=== PATIENT | female | born 1955 | race Caucasian/White ===

== ENCOUNTER 2018-03-24 07:30 | Emergency (ER) | payer MEDICARE, OTHER ==
[~2018-03-24] VITALS: Ht 165.1 cm; Wt 90.7 kg
[2018-03-24 07:43] VITALS: BP 123/62
[2018-03-24] MEDS ORDERED: traMADol HCL 50 MG TAB PO ONE (09:15)
== END 2018-03-24 09:25 | disposition home or self-care (01) ==
LOC: ER 07:30
DX: S82.892A Other fracture of left lower leg, initial encounter for closed fracture (principal); S83.522A Sprain of posterior cruciate ligament of left knee, initial encounter; I10 Essential (primary) hypertension; Z90.49 Acquired absence of other specified parts of digestive tract; Z90.710 Acquired absence of both cervix and uterus; W19.XXXA Unspecified fall, initial encounter; Y93.89 Activity, other specified; Y92.89 Other specified places as the place of occurrence of the external cause; Y99.8 Other external cause status
CPT/HCPCS: 29515; 73562; 73610

== ENCOUNTER 2019-11-02 14:51 | Emergency (ER) | payer MEDICARE ==
[~2019-11-02] VITALS: Ht 165.1 cm; Wt 88.5 kg
[2019-11-02 15:23] VITALS: BP 151/100
[2019-11-02] MEDS ORDERED: traMADol HCL 50 MG TAB PO ONE (16:00)
== END 2019-11-02 16:32 | disposition home or self-care (01) ==
LOC: ER 14:54
DX: S52.502A Unspecified fracture of the lower end of left radius, initial encounter for closed fracture (principal); I10 Essential (primary) hypertension; Z90.49 Acquired absence of other specified parts of digestive tract; Z90.710 Acquired absence of both cervix and uterus; Z88.0 Allergy status to penicillin; W01.0XXA Fall on same level from slipping, tripping and stumbling without subsequent striking against object, initial encounter; Y92.89 Other specified places as the place of occurrence of the external cause; Y93.89 Activity, other specified; Y99.8 Other external cause status
CPT/HCPCS: 29125; 73110

== ENCOUNTER 2022-03-06 13:47 | Emergency (ER) | payer MEDICARE ==
[~2022-03-06] VITALS: Ht 162.6 cm; Wt 88.6 kg
[2022-03-06 15:06] VITALS: BP 128/73
[2022-03-06] MEDS ORDERED: TRAM-297 PO (16:29)
[2022-03-06] MEDS ORDERED: traMADol HCL 50 MG TAB PO ONE (16:30)
== END 2022-03-06 14:12 | disposition home or self-care (01) ==
LOC: ER 13:47
DX: S92.355A Nondisplaced fracture of fifth metatarsal bone, left foot, initial encounter for closed fracture (principal); S80.02XA Contusion of left knee, initial encounter; S93.402A Sprain of unspecified ligament of left ankle, initial encounter; I10 Essential (primary) hypertension; Z90.49 Acquired absence of other specified parts of digestive tract; Z90.710 Acquired absence of both cervix and uterus; Z79.899 Other long term (current) drug therapy; Z88.0 Allergy status to penicillin; Z88.8 Allergy status to other drugs, medicaments and biological substances; W18.39XA Other fall on same level, initial encounter; Y93.89 Activity, other specified; Y92.89 Other specified places as the place of occurrence of the external cause; Y99.8 Other external cause status
CPT/HCPCS: 29515; 73562; 73610; 73630

== ENCOUNTER 2022-12-30 07:03 | Inpatient (IN) | payer MEDICARE ==
[~2022-12-30] VITALS: Ht 162.6 cm; Wt 91.0 kg
[~2022-12-30 07:03] MED LIST: TRAM-297 PO
[2022-12-30 08:39] LABS: Basophils # (auto) 0.1 10 ^3/uL (0-0.2); Basophils % (auto) 1.5 % (0.0-2.0); Eosinophils # (auto) 0.6 10 ^3/uL (0-0.8); Eosinophils % (auto) 5.7 % (0.0-7.0); Hematocrit 40.1 % (36.0-46.0); Hemoglobin 13.5 g/dL (12.2-16.2); Lymphocytes # (auto) 1.4 10 ^3/uL (0.4-5.4); Lymphocytes % (auto) 14.1 % (10.0-50.0); Mean Corpuscular Hgb Conc. 33.6 g/dL (32.0-36.0); Mean Corpuscular Volume 95.2 fL (80.0-100.0); Monocytes # (auto) 0.8 10 ^3/uL (0-1.3); Monocytes % (auto) 8.3 % (0.0-12.0); Neutrophils # (auto) 6.8 10 ^3/uL (1.6-8.6); Neutrophils % (auto) 70.4 % (37.0-80.0); Nucleated Red Blood Cells % 0.1 %; Red Blood Cells 4.21 10^6/uL (4.0-5.20); Red Cell Distribution Width 13.5 % (11.8-14.3); White Blood Cell 9.7 10^3/uL (4.4-10.8)
[2022-12-30 09:01] LABS: Albumin 4.2 g/dL (3.4-5.0); Calcium 9.1 mg/dL (8.5-10.1); Potassium 4.5 mmol/L (3.5-5.1)
[2022-12-30 09:05] LABS: Bilirubin, Total 0.3 mg/dL (0.2-1.0); Total Protein 7.9 g/dL (6.4-8.2)
[2022-12-30 09:12] LABS: INR 0.92 (0.9-1.15)
[2022-12-30] MEDS ORDERED: SODIUM CHLORIDE 0.9% 500 ML IV ONE (09:30)
[2022-12-30] MEDS ORDERED: cefTRIAXone 1GM/50ML D5W 50 ML IV ONE (09:30)
[2022-12-30] MEDS ORDERED: NITROGLYCERIN 0.4 MG SL TAB SL PRN (11:15)
[2022-12-30] MEDS ORDERED: MORPHINE SULFATE INJ 2 MG/ml SYRG IV PRN (11:15)
[2022-12-30] MEDS ORDERED: HYDROcodone-ACET 5/325MG TAB PO PRN (11:15)
[2022-12-30] MEDS ORDERED: ACETAMINOPHEN 325 MG TAB PO PRN (11:15)
[2022-12-30] MEDS ORDERED: ATEN25TA PO (11:20)
[2022-12-30] MEDS ORDERED: FAMO20TA10 PO (11:20)
[2022-12-30] MEDS ORDERED: FLUO10TA18 PO (11:20)
[2022-12-30] MEDS ORDERED: DILT-14 PO (11:20)
[2022-12-30] MEDS ORDERED: GABA-1250 PO (11:20)
[2022-12-30] MEDS ORDERED: CLON0.5T3 PO (11:20)
[2022-12-30] MEDS ORDERED: FAMOTIDINE 20 MG TAB PO ONE (15:45)
[2022-12-30] MEDS: GABAPENTIN 300 MG CAP PO SCH ×2 (15:51→22:53)
[2022-12-30] MEDS: clonazePAM 0.5 MG TAB PO SCH ×2 (15:52→22:53)
[2022-12-30] MEDS: TAMSULOSIN HYDROCHLORIDE 0.4 MG CAP PO SCH (17:55)
[2022-12-30 19:54] LABS: Urine WBC None Seen /hpf (0 - 5)
[2022-12-30 21:23] LABS: Urine Bacteria NONE SEEN /hpf (None Seen); Urine Blood 3+ /uL (Negative)
[2022-12-30 21:25] LABS: Urine Specific Gravity 1.012 (1.001-1.035)
[2022-12-30] MEDS: [UNRECOGNIZED DRUG - OTHER] PO SCH (22:52)
[2022-12-31 05:30] LABS: Basophils # (auto) 0.1 10 ^3/uL (0-0.2); Eosinophils # (auto) 0.4 10 ^3/uL (0-0.8); Eosinophils % (auto) 4.6 % (0.0-7.0); Hematocrit 36.2 % (36.0-46.0); Hemoglobin 12.4 g/dL (12.2-16.2); Lymphocytes # (auto) 1.2 10 ^3/uL (0.4-5.4); Mean Corpuscular Hemoglobin 32.3 pg (28.0-32.0); Mean Corpuscular Hgb Conc. 34.3 g/dL (32.0-36.0); Mean Corpuscular Volume 94.2 fL (80.0-100.0); Monocytes # (auto) 0.7 10 ^3/uL (0-1.3); Monocytes % (auto) 7.6 % (0.0-12.0); Neutrophils # (auto) 6.2 10 ^3/uL (1.6-8.6); Neutrophils % (auto) 72.8 % (37.0-80.0); Red Blood Cells 3.84 10^6/uL (4.0-5.20); Red Cell Distribution Width 13.1 % (11.8-14.3); White Blood Cell 8.5 10^3/uL (4.4-10.8)
[2022-12-31 05:31] LABS: Potassium 4.5 mmol/L (3.5-5.1)
[2022-12-31 05:39] LABS: Albumin 3.6 g/dL (3.4-5.0); BUN/Creatinine Ratio 15.4 (10.0-20.0); Bilirubin, Total 0.5 mg/dL (0.2-1.0); Calcium 8.5 mg/dL (8.5-10.1); Total Protein 6.2 g/dL (6.4-8.2)
[2022-12-31] MEDS: GABAPENTIN 300 MG CAP PO SCH ×3 (06:00→21:56)
[2022-12-31] MEDS: clonazePAM 0.5 MG TAB PO SCH ×3 (06:00→21:56)
[2022-12-31] MEDS: cefTRIAXone 1GM/50ML D5W 50 ML IV SCH (09:06)
[2022-12-31] MEDS: [UNRECOGNIZED DRUG - OTHER] PO SCH ×2 (09:41→21:57)
[2022-12-31] MEDS: FAMOTIDINE 20 MG TAB PO SCH (09:42)
[2022-12-31] MEDS: FLUoxetine HCL 10 MG CAP PO SCH (09:42)
[2022-12-31] MEDS: dilTIAZem 120MG ER CAP PO SCH (09:43)
[2022-12-31] MEDS: ATENOLOL 25 MG TAB PO SCH (10:18)
[2022-12-31] MEDS ORDERED: CIPROFLOXACIN 400MG/200ML 200 ML IV ONE (14:24)
[2022-12-31] MEDS ORDERED: SUCCINYLCHOLINE CHLORIDE 20 MG/ML 10ML VIAL IV ONE (14:35)
[2022-12-31] MEDS ORDERED: MIDAZOLAM HCL 2MG/2ML 2ml VIAL (1mg/ml) ONE (14:36)
[2022-12-31] MEDS ORDERED: MEPERIDINE HCL (25 MG/ML) 1ML VIAL ONE (14:36)
[2022-12-31] MEDS ORDERED: fentaNYL CITRATE 100 MCG/2 ML VL ONE ×2 (14:36→16:03)
[2022-12-31] MEDS ORDERED: ETOMIDATE (2MG/ML) 20ML VIAL IV ONE (14:58)
[2022-12-31] MEDS ORDERED: DexAMETHasone SOD PHOS 10MG/1ML VIAL INJ ONE (14:58)
[2022-12-31] MEDS ORDERED: ePHEDrine SULFATE 50 MG/ML AMP ONE (15:20)
[2022-12-31] MEDS ORDERED: SODIUM CHLORIDE LOCK 10 ML ONE (15:20)
[2022-12-31] MEDS ORDERED: GLYCOPYRROLATE 0.2 MG/ML 1ML VIAL ONE (15:31)
[2022-12-31 17:35] VITALS: BP 115/69
[2022-12-31] MEDS: TAMSULOSIN HYDROCHLORIDE 0.4 MG CAP PO SCH (18:00)
[2022-12-31 22:00] VITALS: BP 130/68
[2023-01-01] VITALS (15 sets, daily range): BP systolic 116–158; BP diastolic 53–79
[2023-01-01] MEDS: GABAPENTIN 300 MG CAP PO SCH ×2 (06:10→21:34)
[2023-01-01] MEDS: clonazePAM 0.5 MG TAB PO SCH ×2 (06:10→21:35)
[2023-01-01] MEDS ORDERED: GABA-1250 PO (06:12)
[2023-01-01] MEDS ORDERED: CLON-1003 PO (07:19)
[2023-01-01] MEDS ORDERED: LIDOCAINE 2%HCL (LOCAL ANESTH.) INJ 20ML MDV ONE (09:59)
[2023-01-01] MEDS ORDERED: IODIXANOL 320MG/ML 100ML BTL IV ONE (09:59)
[2023-01-01] MEDS ORDERED: MIDAZOLAM HCL 2MG/2ML 2ml VIAL (1mg/ml) ONE (10:06)
[2023-01-01] MEDS ORDERED: fentaNYL CITRATE 100 MCG/2 ML VL ONE (10:06)
[2023-01-01] MEDS ORDERED: ZOLPIDEM TARTRATE 5 MG TAB PO PRN (10:15)
[2023-01-01] MEDS: cefTRIAXone 1GM/50ML D5W 50 ML IV SCH (10:18)
[2023-01-01] MEDS ORDERED: ONDANSETRON HCL 4 MG/2 ML VIAL ONE (10:30)
[2023-01-01 12:11] LABS: Basophils # (auto) 0.1 10 ^3/uL (0-0.2); Basophils % (auto) 0.3 % (0.0-2.0); Eosinophils # (auto) 0 10 ^3/uL (0-0.8); Hematocrit 36.8 % (36.0-46.0); Hemoglobin 12.5 g/dL (12.2-16.2); Lymphocytes # (auto) 0.9 10 ^3/uL (0.4-5.4); Lymphocytes % (auto) 5.3 % (10.0-50.0); Mean Corpuscular Hemoglobin 31.8 pg (28.0-32.0); Mean Corpuscular Hgb Conc. 33.9 g/dL (32.0-36.0); Mean Corpuscular Volume 93.8 fL (80.0-100.0); Monocytes # (auto) 0.8 10 ^3/uL (0-1.3); Monocytes % (auto) 4.6 % (0.0-12.0); Neutrophils # (auto) 15.5 10 ^3/uL (1.6-8.6); Neutrophils % (auto) 89.8 % (37.0-80.0); Nucleated Red Blood Cells % 0.1 %; Red Blood Cells 3.93 10^6/uL (4.0-5.20); Red Cell Distribution Width 13.3 % (11.8-14.3); White Blood Cell 17.3 10^3/uL (4.4-10.8)
[2023-01-01 12:28] LABS: Potassium 4.9 mmol/L (3.5-5.1)
[2023-01-01 12:34] LABS: Albumin 3.9 g/dL (3.4-5.0); BUN/Creatinine Ratio 13.2 (10.0-20.0); Bilirubin, Total 0.3 mg/dL (0.2-1.0); Calcium 9.3 mg/dL (8.5-10.1); Total Protein 6.8 g/dL (6.4-8.2)
[2023-01-01] MEDS: FAMOTIDINE 20 MG TAB PO SCH (12:35)
[2023-01-01] MEDS: FLUoxetine HCL 10 MG CAP PO SCH (12:35)
[2023-01-01] MEDS: ATENOLOL 25 MG TAB PO SCH (12:36)
[2023-01-01] MEDS: dilTIAZem 120MG ER CAP PO SCH (12:36)
[2023-01-01] MEDS: [UNRECOGNIZED DRUG - OTHER] PO SCH ×2 (13:25→21:36)
[2023-01-01] MEDS ORDERED: GABAPENTIN 300 MG CAP PO SCH ×2 (14:00→15:08)
[2023-01-01] MEDS ORDERED: clonazePAM 0.5 MG TAB PO SCH (14:00)
[2023-01-01] MEDS: TAMSULOSIN HYDROCHLORIDE 0.4 MG CAP PO SCH (17:32)
[2023-01-02 03:23] VITALS: BP 129/70
[2023-01-02 05:00] VITALS: BP 105/59
[2023-01-02] MEDS: GABAPENTIN 300 MG CAP PO SCH ×2 (05:29→14:07)
[2023-01-02 06:36] LABS: Basophils # (auto) 0.1 10 ^3/uL (0-0.2); Basophils % (auto) 0.6 % (0.0-2.0); Eosinophils # (auto) 0.1 10 ^3/uL (0-0.8); Eosinophils % (auto) 0.8 % (0.0-7.0); Hematocrit 35.9 % (36.0-46.0); Hemoglobin 12.3 g/dL (12.2-16.2); Lymphocytes % (auto) 14.8 % (10.0-50.0); Mean Corpuscular Hemoglobin 32.3 pg (28.0-32.0); Mean Corpuscular Hgb Conc. 34.3 g/dL (32.0-36.0); Mean Corpuscular Volume 94.2 fL (80.0-100.0); Monocytes % (auto) 7.9 % (0.0-12.0); Neutrophils # (auto) 10.1 10 ^3/uL (1.6-8.6); Neutrophils % (auto) 75.9 % (37.0-80.0); Red Blood Cells 3.81 10^6/uL (4.0-5.20); Red Cell Distribution Width 13.3 % (11.8-14.3); White Blood Cell 13.3 10^3/uL (4.4-10.8)
[2023-01-02 09:00] VITALS: BP 119/61
[2023-01-02] MEDS ORDERED: LEVO500T31 PO (09:40)
[2023-01-02] MEDS: ATENOLOL 25 MG TAB PO SCH (10:00)
[2023-01-02] MEDS: FAMOTIDINE 20 MG TAB PO SCH (10:00)
[2023-01-02] MEDS: dilTIAZem 120MG ER CAP PO SCH (10:01)
[2023-01-02] MEDS: clonazePAM 0.5 MG TAB PO SCH (10:01)
[2023-01-02] MEDS: FLUoxetine HCL 10 MG CAP PO SCH (10:07)
[2023-01-02] MEDS: cefTRIAXone 1GM/50ML D5W 50 ML IV SCH (10:16)
[2023-01-02] MEDS: [UNRECOGNIZED DRUG - OTHER] PO SCH (11:53)
[2023-01-02 13:00] VITALS: BP 126/59
[2023-01-02 13:03] VITALS: BP 119/61
[2023-01-05 11:27] LABS: Folate (Folic Acid) 6.19 ng/mL (5.38-24)
== END 2023-01-02 15:30 | disposition home or self-care (01) | DRG 669 ==
LOC: ER 07:03 → TELE 11:14 → TELE-EAST 12-31 16:58
PROVIDERS: ADMIT Nurse Practitioner Family; ATTEND Family Medicine
PROC: 0TBB8ZZ Excision of Bladder, Via Natural or Artificial Opening Endoscopic (ICD-10-PCS; 2022-12-31)
PROC: 0T9030Z Drainage of Right Kidney with Drainage Device, Percutaneous Approach (ICD-10-PCS; principal; 2022-12-31 14:36)
DX: C67.9 Malignant neoplasm of bladder, unspecified (principal); N13.6 Pyonephrosis; N17.9 Acute kidney failure, unspecified; R31.0 Gross hematuria; N32.9 Bladder disorder, unspecified; G35 Multiple sclerosis; I10 Essential (primary) hypertension; K21.9 Gastro-esophageal reflux disease without esophagitis; E86.0 Dehydration; G47.10 Hypersomnia, unspecified; Z82.0 Family history of epilepsy and other diseases of the nervous system; Z88.2 Allergy status to sulfonamides; Z88.0 Allergy status to penicillin; Z88.8 Allergy status to other drugs, medicaments and biological substances; Z79.899 Other long term (current) drug therapy; Z81.8 Family history of other mental and behavioral disorders; Z85.828 Personal history of other malignant neoplasm of skin; Z87.891 Personal history of nicotine dependence; Z88.6 Allergy status to analgesic agent; Z90.710 Acquired absence of both cervix and uterus
CPT/HCPCS: 36415; 50430; 70450; 71045; 74176; 74425; 76775; 76942; 80053; 81001; 82140; 82607; 82746; 84443; 85014; 85018; 85025; 85610; 93005; 95819; 96365; 99152; 99153; C1887; G0378; J0330; J0696; J1100; J2250; J2405; Q9967